=== PATIENT | female | born 1975 | race Two or more races ===

== ENCOUNTER → 2024-04-02 | Outpatient (CLI) | payer MEDICAID, SELFPAY ==
--- NOTE | 2024-04-02 | XR_ITS ---
Examination: PA lateral chest 2 views TECHNIQUE: Upright PA lateral chest 2 views Exam date and time: April 02, 2024 at 1154 hours Comparison November 07, 2023 INDICATIONS: Coughing beginning 15 days ago. FINDINGS: Normal heart size. Lungs are clear. The osseous structures are intact IMPRESSION: No active disease
== END | disposition home or self-care (01) ==
PROVIDERS: PCP Physician Assistant; Referring Provider Physician Assistant; Visit Provider Physician Assistant
DX: R05.9 Cough, unspecified (principal)
CPT/HCPCS: 71046

== ENCOUNTER 2024-08-13 08:03 | Outpatient (RCR) | payer MEDICAID, SELFPAY ==
--- NOTE | 2024-08-13 08:32 | PT.OIERPT ---
PT OP Initial Eval Patient Information Outpatient Physical Therapy Treatment Date: 08/13/24 Visit Reasons: Pain in left arm Medical Diagnosis: M25.512 M79.602 Start of Care: 08/13/24 Date of Onset: 04/09/24 Smoking Status Smoking Status: Never smoker Initial Assessment Subjective: Pt is 49 yr old luxembourgish speaking female who reached with L arm to catch herself when she was falling and felt pain in the shoulder. Since then she feels pain with reaching, she can't sleep at night, opening doors, putting seatbelt on, hair care causes more pain. PMH: high cholesterol, anxiety Objective: L shoulder ArOM: FF: 90 deg with pain Abd: 85 with pain ER: 80 with pain HBB: to L glute Supriya Smith: positive Empty can: positive Magana's:positive Assessment: Pt presents with high level of L shoulder pain today consistent with labral irritation/tear. Pt is not likely going to benefit from skilled therapy and has poor rehab potential due to high pain level with all movements and will likely have more pain with therapy. PT recommends further diagnostic imaging such as MRI of L shoulder. Short Term and Hydropulper Goals Eval and D/C Treatment Plan Eval and D/C Certification Dates: 08/13/24 Procedure Charges OP PT Eval Mod Complex 30 minutes: Yes
== END 2024-08-29 23:59 | disposition home or self-care (01) ==
LOC: CPTX 08:03
PROVIDERS: PCP Physician Assistant; Referring Provider Physician Assistant; Visit Provider Physician Assistant
DX: M25.512 Pain in left shoulder (principal)
CPT/HCPCS: 97162

== ENCOUNTER → 2024-10-12 | Outpatient (CLI) | payer MEDICAID, SELFPAY ==
--- NOTE | 2024-10-12 13:30 | XR_ITS ---
MRI shoulder, left, without contrast. Date and time: October 12, 2024 1431 hours INDICATIONS: Patient fell April 09, 2024 with injury to the shoulder, shoulder pain Technique: Multiple axial, sagittal and coronal sections of the shoulder have been obtained. Siemens high-resolution 1.5 Nadja MRI scanner is utilized. Axial fat-suppressed sections, TR 2350, TE 18 T2-weighted coronal fat-saturated images, TR 3500, TE 7100 T1-weighted coronal images, TR 500, TE 15 T2-weighted sagittal fat-saturated images, TR 3500, TE 57 T1-weighted sagittal sections, TR 504, TE 13. Findings: 20 mm full-thickness rotator cuff tear . Subscapularis insertion is intact. Subscapularis bursa is not seen. Long head of the biceps is in the bicipital groove. No definite tear of the biceps superior labral anchor is seen. Retraction of the musculotendinous junction of the rotator cuff is mild. Tendinosis pattern is moderate. Distance between the acromium and humeral head is 3.5 mm Atrophy of the supraspinatus muscle is severe. Atrophy of the infraspinatus muscle is mild. Sagittal sections demonstrate a horizontal acromion. Acromioclavicular joint demonstrates mild osteoarthritis . Osacromiale is not identified. Fraying and irregularity anterior superior labral margin. Bony glenoid fossa on the sagittal sections does not demonstrate osseous defect. Occult fracture or area of avascular necrosis is not seen. Acromioclavicular joint separation is not visible. Defect in the posterolateral margin of the humeral head is not seen Impression: 20 mm full-thickness rotator cuff tear Fraying and irregularity anterior superior labral margins
== END | disposition home or self-care (01) ==
LOC: SMRI 12:48
PROVIDERS: PCP Physician Assistant; Referring Provider Physician Assistant; Visit Provider Physician Assistant
DX: M75.102 Unspecified rotator cuff tear or rupture of left shoulder, not specified as traumatic (principal)
CPT/HCPCS: 73221

== ENCOUNTER → 2024-12-23 | Outpatient (CLI) | payer MEDICAID, SELFPAY ==
--- NOTE | 2024-12-23 12:42 | XR_ITS ---
Examination: Steroid injection left shoulder joint with imaging guidance Fluoroscopy AP left shoulder single view. Exam date and time: December 23, 2024 1227 hours INDICATIONS: Chronic left shoulder pain years Informed consent provided. Technique: A timeout was completed verifying correct patient, procedure, site, positioning. The patient was placed in supine position appropriate for the steroid injection The patient's site was prepped and draped in sterile fashion 5 cc 1% lidocaine administered locally for anesthesia. Sterile drape applied, maximum barrier sterile technique. Utilizing fluoroscopic guidance, 23-gauge needle placed in the left shoulder joint 0.5 mg Depo-Medrol introduced into the left shoulder joint The patient was in satisfactory and stable condition on completion of the procedure Attending radiologist was present for the entire procedure Estimated blood loss 0 cc. Impression: Successful steroid injection with imaging guidance Fluoroscopy 0.1 minute radiation dose 0.57 milligray 1 spot fluoroscopic shoulder films .
== END | disposition home or self-care (01) ==
PROVIDERS: PCP Physician Assistant; Referring Provider Orthopaedic Surgery; Visit Provider Orthopaedic Surgery
DX: M25.512 Pain in left shoulder (principal); M75.122 Complete rotator cuff tear or rupture of left shoulder, not specified as traumatic
CPT/HCPCS: 20610; 77002

== ENCOUNTER → 2025-02-11 | Outpatient (CLI) | payer MEDICAID, SELFPAY ==
--- NOTE | 2025-02-11 | XR_ITS ---
EXAMINATION: PA lateral chest 2 views TECHNIQUE: Upright PA lateral chest 2 views Date and time: February 11, 2025 1153 hours INDICATIONS: Preop FINDINGS: Normal heart size The lungs are clear. Osseous structures are intact IMPRESSION: No active disease
== END | disposition home or self-care (01) ==
PROVIDERS: PCP Physician Assistant; Referring Provider Physician Assistant; Visit Provider Physician Assistant
DX: Z01.811 Encounter for preprocedural respiratory examination (principal)
CPT/HCPCS: 71046

== ENCOUNTER 2025-03-05 10:35 | Day surgery (SDC) | payer MEDICAID, SELFPAY ==
[2025-03-04 09:55] VITALS: BMI 28.0
[2025-03-04 11:10] LABS: Basophils # (Auto) 0.0 Thou/mm3 (0.0-0.2); Basophils % (Auto) 1 % (0-2.5); Eosinophils # (Auto) 0.1 Thou/mm3 (0.0-0.5); Eosinophils % (Auto) 3 % (0-10); Hematocrit 43.6 % (36.0-46.0); Hemoglobin 14.4 g/dL (12.0-16.0); Immature Granulocytes Auto 0.02 Thou/mm3 (0.00-0.00); Lymphocytes # (Auto) 1.3 Thou/mm3 (1.0-4.8); Lymphocytes % (Auto) 26 % (10-50); Mean Corpuscular HGB Conc 33.0 g/dl (31.0-37.0); Mean Corpuscular Hemoglobin 29.6 pg (25.0-35.0); Mean Corpuscular Volume 90 fL (80-100); Monocytes # (Auto) 0.3 Thou/mm3 (0.0-0.8); Monocytes % (Auto) 6 % (0-12); Neutrophils # (Auto) 3.4 Thou/mm3 (1.8-7.7); Neutrophils % (Auto) 65 % (37-80); Nucleated Red Blood Cell # 0.00 Thou/mm3 (0.00-0.00); Nucleated Red Blood Cell % 0 /100 WBC (0); Platelet Count 211 Thou/mm3 (140-440); RDW Standard Deviation 40.5 fL (36.4-46.3); Red Blood Count 4.86 Miln/mm3 (4.00-5.20); White Blood Count 5.3 Thou/mm3 (3.6-11.0)
[2025-03-04 11:22] LABS: INR 1.0 (0.9-1.3); Partial Thromboplastin Time 28.5 Seconds (22.0-36.0); Prothrombin Time 10.3 Seconds (9.0-12.2)
[2025-03-04 11:29] LABS: Anion Gap 8 (7-16); BUN/Creatinine Ratio 10 Ratio (12-20); Blood Urea Nitrogen 8 mg/dL (9-23); Calcium 9.1 mg/dL (8.3-10.6); Carbon Dioxide 28.3 mMol/L (20.0-31.0); Chloride 107 mMol/L (98-107); Creatinine (Component) 0.8 mg/dL (0.6-1.3); Estimated Creatinine Clearance 79.7 mL/min (>60); Glucose 119 mg/dL (74-106); Osmolality,Calculated 284 (275-295); Potassium 4.1 mMol/L (3.4-5.1); Sodium 143 mMol/L (136-145); eGFR > 60 See Note
[2025-03-05] VITALS (8 sets, daily range): BP systolic 116–140; BP diastolic 50–90; PULSE 63–82; RESP 14–20; TEMP 36.2–36.3; O2SAT 95–100; BMI 27.3
--- NOTE | 2025-03-05 15:25 | ESOP_ITS ---
Date of Procedure 03/05/25 Pre Op Diagnosis 1. Left rotator cuff tear 2 left shoulder impingement syndrome Post Op Diagnosis Same Procedure 1. Excision lateral end of the clavicle 2. Excision coracoacromial ligament 3 acromioplasty 4 repair of rotator cuff 5. Manipulation under anesthesia Findings Refer dictation Procedure Description The patient was given general endotracheal anesthesia. Left shoulder block was also given. Once satisfactory anesthesia was achieved patient was put in about 45?? sitting position with sandbag underneath the left shoulder blade. The part was thoroughly prepped and draped. A skin incision was made at the AC joint extending proximally towards the neck for a half inches and distally towards the arm for about couple of inches. Deeper dissection was carried out. Bleeding vessels were electrocoagulated as and when encountered. The soft tissue was reflected. Following that AC joint was exposed and AC the AC joint revealed significant osteoarthritis changes with spur coming out from the inferior aspect of the lateral end of the clavicle. Joint was exposed. The deltoid muscle was reflected from the anterior and lateral aspect of the acromial process. The acromial process has 3 to 4 mm anterior and 1 to 2 mm lateral osteophytes present. Following that a periosteal elevator was placed underneath the lateral end of the clavicle and lateral 3-4 mm was excised. The coracoacromial ligament was removed. Anterior 2 mm and lateral 2 mm along with the osteophytes from the acromial p rocess was removed. With the help of curved osteotome the undersurface of the Acromial processes was chiseled out. That made more room between the superior surface of the head of the humerus and undersurface of the acromial process. Following that the rotator cuff was inspected. It revealed big oval tear, however most of the fibers were attached to the greater tuberosity. Wound was irrigated with antibiotic solution every 4-5 minutes. The left shoulder was manipulated at this time. Full range of abduction and forward flexion was achieved. The rotator cuff tear was repaired with 2-0 Vicryl. 2 drill holes were made on the acromial process and deltoid muscle was stitched back to it. Some reinforcement sutures were placed. The subcutaneous tissue was then closed with the help of 2-0 Vicryl and 3-0 Vicryl in layers. The skin was closed with subcutaneous Monocryl. Prineo tape was applied. After cleaning the wound with hydrogel proximal solution and sterile dressing was applied. Patient was taken to the recovery room in good condition. Estimated blood loss 20 mL. Prognosis in this case is good. Anesthesia GETA and other Pathology / specimen None Estimated Blood Loss 20 Surgeon Dinh Barton MD Surgical Staff Operation Date: 03/05/25 13:00 Case Staff Anesthesiologist: Jose Francisco Seay RN First Assistant: Sukhwinder Ramirez
[2025-03-05] MEDS: ONDANSETRON INJ 2 MG/ML INJ 2 ML 4 MG IVP (15:49)
[2025-03-05] MEDS: HYDROmorphone INJ 2 MG/ML VIAL 0.4 MG IVP ×2 (15:51→16:02)
--- NOTE | 2025-03-05 16:07 | ESHP_ITS ---
RE: PRINCESS FARIA : 1975 DATE OF ADMISSION: 03/05/2025 Patient came to my office on 03/04/2025 in the [facility] for a pre-op history and physical examination. HISTORY OF PRESENTING COMPLAINT: Patient presented to me earlier with a history of pain and restriction of movement of left shoulder. This is going on for a long period of time. Last 6 months are extremely painful. Intensity of the pain is 8-9 out of 10. Unable to sleep. Unable to raise left arm above the shoulder level. Quality of life and activity of daily living is affected. Patient wants something to be done about it. PAST MEDICAL HISTORY: Patient has a history of high blood pressure. No history of diabetes mellitus, asthma, seizure, chest pain, myocardial infarction, bleeding disorder. Patient has hypercholesterolemia. PAST SURGICAL HISTORY: Nil known. DRUG HISTORY: The patient is on atorvastatin, clonazepam, loratadine, terbinafine. ALLERGIES: NIL KNOWN. FAMILY HISTORY AND SOCIAL HISTORY: Patient denies smoking, drinking, not working. PHYSICAL EXAMINATION: GENERAL: Normal built lady. VITAL SIGNS: Pulse 64 per minute. Blood pressure is 120/76. NECK: Soft, supple. No mass felt. Trachea is centrally placed. CARDIOVASCULAR SYSTEM: First and second heart sound normal, no murmur heard. RESPIRATORY SYSTEM: Bilateral vesicular breath sounds. CHEST: Clear. ABDOMEN: Soft. No mass felt. Bowel sounds present. BREAST EXAMINATION: Not indicated in this case. EXTREMITIES: Left shoulder examination, 2+ tenderness AC joint and also subacromial space. Active range of motion 0-80 degrees of abduction, 0-80 degrees of forward flexion. Internal rotation severely restricted and painful. Impingement test, Olive test and drop arm test is positive. MRI scan confirmed torn rotator cuff. Since patient is symptomatic therefore surgical procedure was discussed and advised. I explained that I do open surgery. I also explained that in case patient wants arthroscopic surgery, I may refer her out. However patient wanted to proceed with surgery. Risk with anesthesia was explained and that includes but not limited to reaction to anesthetic agents, cardiac arrest or rarely it might be fatal. Risk with operation includes infection and if that happens patient may need further surgical procedure. Other risks include delayed healing wound dehiscence etc. No guarantee is given regarding outcome of the procedure and or relief of symptoms. Indeed physical therapy is very important component for the successful outcome of the procedure and full cooperation is very helpful. Patient also cleared for surgical procedure. Surgery booked for 03/05/2025. DT: 15:33:42 TT: 16:05:00 Ref: [id number] - TID: [id number]
--- NOTE | 2025-03-05 16:09 | SUR.PHASEI ---
pt able to tolerate oral fluids without difficulty swallowing or nausea/vomiting.
--- NOTE | 2025-03-05 16:54 | SUR.PHASEII ---
pt awake and alert, breathing unlabored on room air. v/s stable. pt dressing to left shoulder cdi, shoulder sling in place. pt able to ambulate to wheelchair with steady gait. d/c instructions given with daughter Liz in room using aerial photograph interpreter Johnnie sotelo, all questions answered. pt d/c via wheelchair with all belongings.
== END 2025-03-05 16:54 | disposition home or self-care (01) ==
PROVIDERS: PCP Physician Assistant; Referring Provider Orthopaedic Surgery; Visit Provider Orthopaedic Surgery
PROC: (CPT 23412; principal; 2025-03-05 12:45)
DX: M75.102 Unspecified rotator cuff tear or rupture of left shoulder, not specified as traumatic (principal); M75.42 Impingement syndrome of left shoulder; M19.012 Primary osteoarthritis, left shoulder
CPT/HCPCS: 23412; 23120; 36415; 80048; 85025; 85610; 85730; A4649; J0131; J0690; J1171; J1580; J2250; J2371; J2405; J2704; J2795; J3010; J3490

== ENCOUNTER 2025-03-21 07:30 | Emergency (ER) | payer MEDICAID, SELFPAY ==
[2025-03-21 07:48] VITALS: BP 125/80; PULSE 69; RESP 16; TEMP 37; O2SAT 99; BMI 28.3
--- NOTE | 2025-03-21 08:19 | PD.EDUPEX ---
Upper Extremity Injury RME/HPI General Chief Complaint: Extremity Injury, Upper Stated Complaint: L) SHOULDER PAIN AFTER [id number]/5, PULSING, 10/08 Time Seen by Provider: 03/21/25 07:49 Arrival date/time: 03/21/25 07:30 This is a 50-year-old female that comes into the emergency room with complaints of left shoulder pain. Patient states that she had surgery because of a tear to her left shoulder on March 05, 2025. Per notes patient had Excision lateral end of the clavicle, Excision coracoacromial ligament, acromioplasty, repair of rotator cuff. Patient reports that she has had different types of tape and dressings over her surgical wound. Patient reports the last dressing was taken off last Saturday and her skin was very irritated. Patient showed me a picture and it did look very erythemic and irritated at that time. Today patient's wound looks irritated but looks a lot better than the picture patient showed me. Patient states that she will randomly get see shocking pain in her left shoulder. Patient states that they come and go patient reports that she was taking naproxen at home and it does help the pain sometimes but sometimes she feels like the pain is little bit more. Patient does have Tylenol with codeine at home and states that she has not really been taking that. Related Data Home Medications ?Medication ?Instructions ?Recorded ?Confirmed atorvastatin 40 mg tablet (Lipitor) 40 mg PO QDAY 03/04/25 03/05/25 clonazepam 0.5 mg tablet 0.5 mg PO Q12H 03/04/25 03/05/25 loratadine 10 mg tablet 10 mg PO QDAY 03/04/25 03/05/25 terbinafine HCl 250 mg tablet 250 mg PO QDAY 03/04/25 03/05/25 Allergies Allergy/AdvReac Type Severity Reaction Status Date / Time tramadol Allergy Intermediate ITCHING Verified 03/21/25 07:35 Review of Systems Review of Systems Systems Reviewed: All systems reviewed, normal except as documented Past Medical History Social History SMOKING STATUS: Current some day smoker ED Exam Narrative Physical exam: VITAL SIGNS: Reviewed. GENERAL APPEARANCE: Alert and interactive, follows commands, no acute distress HEAD AND FACE: Non-traumatic. ENT: PERRL, conjuctiva pink and clear, eyelid no trauma, Mucous membrane moist. NECK: Supple, nontender, no nuchal rigidity. CHEST: No tenderness, no crepitus, no paradoxical movement, no retractions. LUNGS: breathing even and unlabored HEART: Regular rate, cap refill less than 2 seconds ABDOMEN: Soft, nondistended, no guarding, nontender, no rebound, no masses, NEUROLOGICAL: Gross motor function intact sensory function intact, Appropriate for age. MUSCULOSKELETAL: low back nontender, full range of motion. EXTREMITIES: No redness no swelling no skin breakdown on bilateral foot and leg. Distal neurovascular status intact bilateral foot SKIN: Color pink, dry, surgical wound around the left clavicle area and shoulder area approximately 6 cm in length. Patient is wound looks well-approximated. Skin appears slightly irritated where the tape must have been but comparing it to the pictures that patient showed me it looks a lot better. It does not look infected. Palpated around wound there is no induration or fluctuance of fluid. No erythema around the wound no change in temperature around the wound. Patient has arm in sling. Course Quality Measures none Orders Category Date Time Status DiphenhydrAMINE [Benadryl] Med 03/21/25 08:18 Discontinued 25 mg PO X1 ONE HYDROcodone*/APAP 5/325 [[place] 5/325] Med 03/21/25 08:18 Discontinued 1 tab PO X1 ONE Ondansetron Odt [Zofran Odt] Med 03/21/25 08:18 Discontinued 4 mg PO X1 ONE Vital Signs Vital signs: Vital Signs Temperature 98.6 F 03/21/25 07:48 Pulse Rate 69 03/21/25 07:48 Respiratory Rate 16 03/21/25 07:48 Blood Pressure 125/80 03/21/25 07:48 Pulse Oximetry (%) 99 03/21/25 07:48 Oxygen Delivery Method Room Air 03/21/25 07:48 Extremity Injury MDM Narrative MDM Narrative:: Patient denies trauma other than her recent surgery. Patient was just seen by surgeon last week and was told everything looked okay. Patient states that she is going to start physical therapy next week. Patient's pain does not seem to be constant it just comes and goes every so often according to patient patient reports that she no longer takes Tylenol with codeine but only takes naproxen approximately twice a day. I did talk to patient and let her know that the pain that she is experiencing could just be from inflammation or possible nerve irritation or scar tissue. Even upon assessment she did not seem like she was in a lot of pain. Patient was worried that her wound can be infected. She showed me a picture of what it looked like previously and it looked significantly worse raised erythemic and discolored. Patient's wound actually looks like it is healing well. I do think that the redness she does see is areas where tape was located and it looks more like a contact dermatitis. I told her she can use an oral antihistamine I really did not want her putting cream on her surgical wound. I did give patient a dose of [place], Zofran and Benadryl. I told patient to make an appointment with her surgeon tomorrow patient feels comfortable plan of care. And verbalized understanding. I did tell her that I could prescribe her an antibiotic I do not think she needs it but if her wound starts looking infected she can take it however I explained to her I did not think she needed it at all and this was all likely contact dermatitis from the tape. Dragon dictation: Although this document has been carefully reviewed, there may still be some phonetic and other typographical errors. These errors are purely grammatical due to imperfections in the software program and should not be construed in any way to compromise the substance of the patient's medical care during this visit. Patient data External records reviewed:: [facility] previous records Clinical information provided by:: patient Social determinants that could affect healthcare access:: none Patient has the following chronic illnesses:: see note How is presenting disease/condition affected by chronic disease/condition?: uneffected by Evaluation data The following diagnostics were reviewed and interpreted by me:: other (specify) (none) Lab and/or radiology exams considered but not ordered:: none Interpretation Summary: see note Medications / Prescriptions Medications or Prescriptions considered but not ordered:: none Medication administrations:: Medication Administration History Discontinued Medications Hydrocodone Bitart/Acetaminophen (Hydrocodone/Apap 5/325 Tablet) 1 tab PO X1 ONE Stop: 03/21/25 08:19 Last Admin: 03/21/25 08:31 Dose: 1 tab Documented By: RADHA Diphenhydramine HCl (Diphenhydramine 25 Mg Capsule) 25 mg PO X1 ONE Stop: 03/21/25 08:19 Last Admin: 03/21/25 08:30 Dose: 25 mg Documented By: RADHA Ondansetron HCl (Ondansetron Odt 4 Mg Tabrap) 4 mg PO X1 ONE; Protocol Stop: 03/21/25 08:19 Last Admin: 03/21/25 08:30 Dose: 4 mg Documented By: RADHA see note Consultations Consultation(s) initiated? (list below): No Diagnosis Upper Extremity Injury Differential Diagnosis: other (cellulitis, dermatitis, contusion ) Most likely diagnosis given after review of the tests above:: see note Admission Indicated Admission indicated?: not indicated Admission Request Was there a request for admission?: No Disposition Plan Disposition Plan: Discharge Discharge Attestation Discharge Attestation: The patient and all family members were given an opportunity to ask questions and understood the discharge instructions. Discharge instructions specifically effects, indications for sooner follow up or return to the emergency department, and the expected course of current diagnosis. Patient condition: Stable Discharge Plan Plan Patient Disposition: HOME (Self Care) Patient condition on transfer: Stable Prescriptions/Referrals Prescriptions/Med Rec: No Action clonazepam 0.5 mg tablet 0.5 mg PO Q12H Patient Comments: take 1 tablet by mouth twice a day terbinafine HCl 250 mg tablet 250 mg PO QDAY loratadine 10 mg tablet 10 mg PO QDAY atorvastatin [Lipitor] 40 mg tablet 40 mg PO QDAY Problem List Clinical Impression: Contact dermatitis Patient/Caregiver Discharge Instructions Discharge Activity: activity as tolerated Education Materials: ED Contact Dermatitis Additional Instructions: Tiffanie un deejay con vogel medico de cabecera en las proximas 24-48 horas. Regrese a la julian de emergencias si hay evidencia de que los signos o sintomas empeoran. Print Language: Yoruba Stand Alone Forms: Sita Award Info., Patient Portal Info Letter PA/INSURANCE PLAN SPECIALIST Supervising Physician PA/REBEKAH Supervising Physician: colt
[2025-03-21] MEDS: ONDANSETRON ODT 4 MG TABRAP PO (08:30)
[2025-03-21] MEDS: HYDROcodone/APAP 5/325 TABLET 1 TAB PO (08:31)
== END 2025-03-21 08:54 | disposition home or self-care (01) ==
LOC: SERX 08:39
PROVIDERS: Emergency Provider Emergency Medicine; PCP Physician Assistant
DX: L25.9 Unspecified contact dermatitis, unspecified cause (principal)
CPT/HCPCS: 99281; Q0162; A9270

== ENCOUNTER 2025-03-30 08:30 | Outpatient (RCR) | payer MEDICAID, SELFPAY ==
--- NOTE | 2025-03-22 09:05 | PT.OIERPT ---
PT OP Initial Eval Patient Information Visit Reasons: Left rotator cuff tear Medical Diagnosis: Left Rotator Cuff Tear Treatment Dx #1: Left Shoulder Mobility Deficits Treatment Dx #2: Left Shoulder Weakness Start of Care: 03/22/25 Date of Onset: 03/05/25 Smoking Status Smoking Status: Never smoker Initial Assessment Subjective: Pt is a 50 y/o female s/p left rotator cuff repair 03/05/25. Pt still has pain (7/10) with all activities. Pt has limitation with overhead motions, lifting, chores, self care, cooking, cleaning, and performing recreational activities. Objective: Left Shoulder PROM Flexion: 90 deg Abduction: 90 deg ER and IR: unable Left Shoulder AROM Flexion: neutral Abduction: 20 deg ER and IR: unable Left Shoulder MMTs: grossly 2-/5 Left Scapula MMTs: grossly 2-/5 Assessment: Pt demonstrate left shoulder mobility and strength deficits s/p rotator cuff repair leading to difficulty with ADLs. Pt will benefit from physical therapy to increase ROM, strength, and work on stability Short Term and [facility] Goals 1) Increase left shoulder PROM WNL in 12 wks to prevent frozen shoulder 2) Increase left shoulder AROM WFL in 12 wks to be able to perform overhead motions 3) Increase left shoulder MMTs grossly to 4-/5 in 12 wks to be able to perform lifting activities 4) Decrease shoulder pain to 2/10 in 12 wks to be able to perform recreational activities 5) Increase left scapula MMTs grossly to 4-/5 in 12 wks to be able to perfrom chores 6) Indep with HEP Treatment Plan 1) Manual Therapy 2) Therapeutic Activities 3) Therapeutic Exercises 4) Modalities (ice, heat) Frequency and Duration: 2 x wk for 12 wks Certification Dates: 03/22/25 to 06/20/25 Procedure Charges OP PT Eval Mod Complex 30 minutes: Yes
--- NOTE | 2025-03-30 09:55 | PT.ODAYNRPT ---
PT Outpatient Daily Note OP Daily Note Outpatient Physical Therapy Treatment Date: 03/30/25 Visit Reasons: Rt Rotator cuff surgrery Subjective: Pt's shoulder feels okay. Pt notice stiffness and pain around the shoulder. Objective: Right Shoulder Flexion AAROM: 100 deg Assessment: Pt demonstrate slow progress with AAROM flexion while using the nara. Pt decline ice today Plan: Continue with PT Length of Time (minutes) of Treatment: 30 Minutes Procedure Charges Therapeutic Exercise 30 minutes: Yes
== END 2025-03-31 23:59 | disposition home or self-care (01) ==
LOC: CPTX 08:30
PROVIDERS: PCP Physician Assistant; Referring Provider Orthopaedic Surgery; Visit Provider Orthopaedic Surgery
DX: Z47.89 Encounter for other orthopedic aftercare (principal); Z98.890 Other specified postprocedural states; M25.512 Pain in left shoulder; R53.1 Weakness
CPT/HCPCS: 97110; 97162